=== PATIENT | female | born 1930 | race Caucasian/White ===

== ENCOUNTER 2016-09-23 16:01 | Emergency (ER) | payer OTHER ==
[2016-09-23 16:22] VITALS: BP 154/48
--- NOTE | 2016-09-23 16:54 | ED Physician Documentation ---
Upper Extremity Injury - HISTORIAN Historian: patient, spouse - [facility] Stated Complaint: left hand 3rd digit injury Chief Complaint: Hand Injury Additional Information: Fell in her garden yesterday. Thinks she hit sore finger on railroad timber. - ROS CONST: no problems - PAST HX Past History: none, Rt handed Allergies/Adverse Reactions: Allergies Allergy/AdvReac Type Severity Reaction Status Date / Time No Known Allergies Allergy Verified 09/23/16 16:14 Home Medications: Ambulatory Orders Medication Instructions Recorded Atorvastatin Calcium 40 mg PO DAILY 09/23/16 Citalopram Hydrobromide 20 mg PO DAILY 09/23/16 [Citalopram HBr] Glimepiride [Amaryl] 4 mg PO DAILY 09/23/16 Losartan Potassium [Cozaar] 50 mg PO DAILY 09/23/16 - SOCIAL HX Smoking History: non-smoker - FAMILY HX Family History: no significant history - VITAL SIGNS Vital Signs: Vital Signs Temp Pulse Resp BP Pulse Ox 98.8 F 71 18 154/48 96 09/23/16 16:16 09/23/16 16:16 09/23/16 16:16 09/23/16 16:16 09/23/16 16:16 - REVIEWED ASSESSMENTS Nursing Assessment Reviewed: Yes Vitals Reviewed: Yes Progress - Progress Progress: Left 3rd digit Clinical history: Pain Technique AP lateral oblique Findings: There is a avulsion fracture from the base of the middle phalanx of the left 2nd digit. Soft tissue swelling is present over the pip joint. Impression: Avulsion fracture from the palmar base the middle phalanx of the left 3rd digit Electronically signed on Sep 23, 2016 4:47:45 PM CDT by: Babatunde Aguilera ED Results Lab/Radiology - Orders Orders: ED Orders Category Date Time Status Finger Splint 1T Care 09/23/16 16:47 Ordered FINGER 2 VIEWS OR MORE [RAD] Stat Exams 09/23/16 Ordered Upper Extremity Injury Physic - Physical Exam General Appearance: no acute distress, alert Hand: limited ROM (left 3rd finger, swelling at PIP. ) Wrist: normal inspection, no evidence of injury Elbow/Forearm: normal inspection, no evidence of injury Shoulder: normal inspection, no evidence of injury Neuro/Vascular/Tendon: no vascular compromise (L radial pulse 2+. Fingers warm, pink), motor nml, sensation nml Skin: warm,dry Head/ENT: nml inspection Neck/Back: nml inspection Resp/CVS: no resp. distress Discharge Clincal Impression: Fracture of finger of left hand Home Medications: Ambulatory Orders Atorvastatin Calcium 40 mg PO DAILY 09/23/16 Citalopram Hydrobromide [Citalopram HBr] 20 mg PO DAILY 09/23/16 Glimepiride [Amaryl] 4 mg PO DAILY 09/23/16 Losartan Potassium [Cozaar] 50 mg PO DAILY 09/23/16 Condition: Good Disposition: 01 HOME, SELF-CARE Decision to Admit: NO Decision Time: 16:53
--- NOTE | 2016-09-23 16:56 | Diagnostic Imaging Report ---
Name: MARIA ESTHER SHANNON ~~ ~~ : 32 ~~ Acc #: [id number]~~ DOS: Sep 23, 2016 4:31:52 PM CDT ~~ Mod: CR ~~ Desc: UPPER EXTREMITY 1 of 1 CLYDE AMOS~ [address] [address] ~ ~ ~ ~ Report Submission Date: Sep 23, 2016 4:47:45 PM CDT Patient ~ Study Name: MARIA ESTHER SHANNON ~ Date: Sep 23, 2016 4:31:52 PM CDT ~ Modality Type: CR Gender: F ~ Description: UPPER EXTREMITY : 32 ~ Institution: [facility] Physician: CLYDE AMOS ~ ~ ~ ~ Left 3rd digit Clinical history: Pain Technique AP lateral oblique Findings: There is a avulsion fracture from the base of the middle phalanx of the left 2nd digit. Soft tissue swelling is present over the pip joint. Impression: Avulsion fracture from the palmar base the middle phalanx of the left 3rd digit ~ Electronically signed on Sep 23, 2016 4:47:45 PM CDT by: Babatunde CASAREZ
== END 2016-09-23 17:01 | disposition home or self-care (01) ==
LOC: ED 16:01
DX: S62.613A Displaced fracture of proximal phalanx of left middle finger, initial encounter for closed fracture (principal); X58.XXXA Exposure to other specified factors, initial encounter; Y93.9 Activity, unspecified; Y99.9 Unspecified external cause status
CPT/HCPCS: 73140; 99283

== ENCOUNTER 2018-02-25 16:38 | Emergency (ER) | payer OTHER ==
[2018-02-25 16:55] VITALS: BP 172/54
[2018-02-25] MEDS ORDERED: DIPH,PERTUSS(ACELL),TET VAC/PF 0.5 ML DISP.SYRIN IM ONE (17:03)
[2018-02-25] MEDS ORDERED: Lidocaine 1% 5ml(IM or SUTURE)(PAIN CLINIC) IJ ONE (17:03)
--- NOTE | 2018-02-25 17:18 | ED Physician Documentation ---
Fall - HISTORIAN Historian: patient - HPI Stated Complaint: FALL Chief Complaint: Multiple Trauma Onset: just prior to arrival Where: home Context: tripped r: moderate Associated Symptoms:: no loss of consciousness Location of Pain/Injury: head Injury to Right Extremity: hand, knee Injury to Left Extremity: hand, knee (abrasion) - ROS CONST: no problems NEURO: denies: dizziness MS/SKIN/LYMPH: denies: neck pain EYES/ENT: none CVS/RESP: none GI/: denies: problems urinating - PAST HX Past History: diabetes Type 2 Immunizations: denies: tetanus Allergies/Adverse Reactions: Allergies Allergy/AdvReac Type Severity Reaction Status Date / Time No Known Allergies Allergy Verified 09/23/16 16:14 Home Medications: Ambulatory Orders Medication Instructions Recorded Atorvastatin Calcium 40 mg PO DAILY 09/23/16 Glimepiride [Amaryl] 4 mg PO DAILY 09/23/16 Aspirin [Children's Aspirin] 81 mg D 02/25/18 - SOCIAL HX Smoking History: non-smoker Alcohol Use: none Drug Use: none - FAMILY HX Family History: no significant history - VITAL SIGNS Vital Signs: Vital Signs Temp Pulse Resp BP Pulse Ox 97.3 F L 69 20 172/54 96 02/25/18 16:50 02/25/18 16:50 02/25/18 16:50 02/25/18 16:50 02/25/18 16:50 - REVIEWED ASSESSMENTS Nursing Assessment Reviewed: Yes Vitals Reviewed: Yes Procedures Wound Location: head Wound's Depth, Shape: superficial Wound Explored: clean Irrigated w/ Saline (ccs): 50 Betadine Prep?: Yes Anesthesia: 1% Lidocaine Wound Debrided: moderate Wound Repaired With: sutures Suture Size/Type: 4:0 Number of Sutures: 8 Sterile Dressing Applied?: Yes Splint Applied?: No Sling Applied?: No ED Results Lab/Radiology - Radiology Radiology Impressions: CT BRAIN WITHOUT CONTRAST HISTORY: Injury after fall. Hit head on concrete steps TECHNIQUE: Axial images were obtained from the skullbase to the vertex without IV contrast. FINDINGS: The ventricular system, basilar cisterns and cortical sulci are prominent compatible with age-related cortical volume loss. Patchy areas of periventricular to subcortical white matter lucency are present consistent with mild small vessel ischemic disease. 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 There is no positive mass effect or intra/extra-axial hemorrhage. Visualized paranasal sinuses demonstrate prior functional endoscopic sinonasal surgery. There is mucosal thickening of the bilateral maxillary sinuses, right more than left. The calvarium is intact. There is a soft tissue laceration of the left frontal scalp. IMPRESSION: Age-related cortical volume loss with mild small vessel ischemic disease. 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 Small, focal laceration of the left frontal scalp without skull fracture. Status post functional endoscopic sinonasal surgery with mucosal thickening of bilateral maxillary sinuses, right more than left. No acute intracranial abnormality. - Orders Orders: ED Orders Category Date Time Status CT BRAIN W/O CONTRAST Stat Exams 02/25/18 Ordered Diph,Pertuss(Acell),Tet Vac/Pf [Adacel] Med 02/25/18 17:03 Once 0.5 ml IM .ONCE ONE Lidocaine 1% 5ml(IM or SUTURE) [Xylocaine] Med 02/25/18 17:03 Once 50 mg IJ NOW ONE Fall Physical Exam - Physical Exam General Appearance: no acute distress Head: trauma (vertical 4 cm laceration left forehead) Neck: non-tender Eye: JOSE ANTONIO ENT: nml external inspection Resp/CVS: chest non-tender, heart sounds nml Abdomen: soft, no distension Neuro: oriented x3, facial asymmetry Skin: color nml Extremities: other (abrasions to both knees at tibial plateau and bilateral hands at thenar ) - Yohana Coma Score Eyes Open: Spontaneous Speech: Oriented Motor: Obeys Commands Discharge Clincal Impression: Laceration Referrals: Kaiden Petersen MD [Primary Care Provider] - 2 Days Additional Instructions: Keep wound clean and dry Wash twice daily with soap, pat to dry Apply triple antibiotic ointment twice daily Condition: Good Disposition: 01 HOME, SELF-CARE Decision to Admit: NO Date of Decison to Admit: 02/25/18 Decision Time: 18:26
--- NOTE | 2018-02-25 19:05 | Diagnostic Imaging Report ---
CHRIS ANAYA [facility] [address] [facility] [address] [place] [address]. [id number] Report Submission Date: Feb 25, 2018 5:40:59 PM CDT Patient Study Name: MARIA ESTHER SHANNON Date: Feb 25, 2018 5:17:04 PM CDT Modality Type: CT\SR Gender: F Description: CT BRAIN W/O CONTRAST : 32 Institution: [facility] Physician: CHRIS ANAYA CT BRAIN WITHOUT CONTRAST HISTORY: Injury after fall. Hit head on concrete steps TECHNIQUE: Axial images were obtained from the skullbase to the vertex without IV contrast. FINDINGS: The ventricular system, basilar cisterns and cortical sulci are prominent compatible with age-related cortical volume loss. Patchy areas of periventricular to subcortical white matter lucency are present consistent with mild small vessel ischemic disease. 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 There is no positive mass effect or intra/extra-axial hemorrhage. Visualized paranasal sinuses demonstrate prior functional endoscopic sinonasal surgery. There is mucosal thickening of the bilateral maxillary sinuses, right more than left. The calvarium is intact. There is a soft tissue laceration of the left frontal scalp. IMPRESSION: Age-related cortical volume loss with mild small vessel ischemic disease. 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 Small, focal laceration of the left frontal scalp without skull fracture. Status post functional endoscopic sinonasal surgery with mucosal thickening of bilateral maxillary sinuses, right more than left. No acute intracranial abnormality. Electronically signed on Feb 25, 2018 5:40:59 PM CDT by: Charlene CASAREZ
== END 2018-02-25 18:26 | disposition home or self-care (01) ==
LOC: ED 16:38
DX: S09.90XA Unspecified injury of head, initial encounter (principal); S01.81XA Laceration without foreign body of other part of head, initial encounter; S80.211A Abrasion, right knee, initial encounter; S80.212A Abrasion, left knee, initial encounter; S60.512A Abrasion of left hand, initial encounter; S60.511A Abrasion of right hand, initial encounter; W19.XXXA Unspecified fall, initial encounter; Y92.018 Other place in single-family (private) house as the place of occurrence of the external cause; Y93.9 Activity, unspecified; Y99.9 Unspecified external cause status
CPT/HCPCS: 12013; 70450; 90471; 90715; 96372

== ENCOUNTER 2019-04-23 21:20 | Emergency (ER) | payer MEDICARE, OTHER ==
--- NOTE | 2019-04-23 22:13 | ED Physician Documentation ---
Fall - HISTORIAN Historian: patient, child (Daughter) - HPI Stated Complaint: Fall and struck side of doorframe Chief Complaint: Fall Additional Information: 89 year old female presents to ER via [facility] s/p fall from standing position; spouse and daughter at the bedside; patient states that she tripped on her carpet and hit her head on the door frame. She has a small hematoma to the left hip. She states that her hip is fine; she states that it will just be bruised; ambulated after fall without difficulty; she also has a small 1 cm lac to the left temporal region of scalp; she denies any LOC. She states that she is on Xarelto; no memory loss; daughter states that patient is at baseline and neurologically intact; discussed head CT but they will monitor patient at home and we discussed symptoms to monitor in case of "slow bleed". Onset: just prior to arrival Where: home Context: tripped r: mild Associated Symptoms:: no loss of consciousness Location of Pain/Injury: head, hip Injury to Right Extremity: none Injury to Left Extremity: hip (small hematoma; denies bone pain) - ROS CONST: no problems NEURO: denies: dizziness MS/SKIN/LYMPH: denies: weakness, back pain EYES/ENT: none CVS/RESP: none GI/: denies: nausea, vomiting - PAST HX Past History: A-Fib Immunizations: tetanus (2018), UTD Allergies/Adverse Reactions: Allergies Allergy/AdvReac Type Severity Reaction Status Date / Time Penicillins Allergy Verified 04/23/19 21:47 prednisone Allergy Verified 04/23/19 21:47 Sulfa (Sulfonamide Allergy Verified 04/23/19 21:47 Antibiotics) Home Medications: Ambulatory Orders Medication Instructions Recorded Atorvastatin Calcium 20 mg PO HS 10/03/18 Citalopram Hydrobromide 20 mg PO DAILY 10/03/18 [Citalopram HBr] Glimepiride [Amaryl] 2 mg PO DAILY 10/03/18 Losartan Potassium [Cozaar] 50 mg PO DAILY 10/03/18 Apixaban [Eliquis] 2.5 mg PO DAILY 04/23/19 Aspirin [Aspir-Low] 81 mg PO DAILY 04/23/19 Glimepiride 1 mg PO DAILY 04/23/19 Metoprolol Tartrate [Lopressor] 20 mg PO DAILY 04/23/19 Omeprazole 20 mg PO DAILY 04/23/19 Trazodone HCl 50 mg PO DAILY 04/23/19 - SOCIAL HX Smoking History: non-smoker Alcohol Use: none Drug Use: none - FAMILY HX Family History: none - VITAL SIGNS Vital Signs: Vital Signs Temp Pulse Resp BP Pulse Ox 98.2 F 67 16 251/74 96 04/23/19 21:20 04/23/19 21:20 04/23/19 21:20 04/23/19 21:20 04/23/19 21:20 - REVIEWED ASSESSMENTS Nursing Assessment Reviewed: Yes Vitals Reviewed: Yes Procedures Wound Location: head Wound Length: 1 cm Wound's Depth, Shape: linear Wound Explored: no foreign body removed Irrigated w/ Saline (ccs): 100 Betadine Prep?: No Wound Repaired With: clemente Number of Sutures: 3 (3 clemente) Progress: Patient tolerated well Fall Physical Exam - Physical Exam General Appearance: alert, mild distress Head: trauma (1 cm lac to the left temporal region) Neck: non-tender, painless ROM Eye: JOSE ANTONIO, EOMI, lids & conjunct. nml ENT: nml external inspection, no dental injury, no oral injury, airway nml Resp/CVS: chest non-tender, no ecchymosis, breath sounds nml, heart sounds nml Abdomen: soft, normal bowel sounds Neuro: oriented x3, CN's nml as tested, sensation nml, motor nml, mood/affect nml, psych coordinator nml, psych coordinator symmetrical Skin: color nml, warm, nml palp., other (1 cm lac to the left temporal) Back: normal inspection Extremities: pelvis stable, hips non-tender, nml ROM, nml color/temp, other (small hematoma to the left hip; no bone pain; steady gait (ambulated in [place] with nurse)) Joint: joints nml, nml ROM, Nml gait/weight bearing (ambulated in gustafson with nursing) - Yohana Coma Score Eyes Open: Spontaneous Speech: Oriented Motor: Obeys Commands Discharge Clincal Impression: Fall from standing, Laceration of head, Contusion of left hip Referrals: Kaiden Petersen MD [Primary Care Provider] - 2 Days Additional Instructions: Monitor for signs of slow head bleeds: Increase in head pain, headache not relieved with Tylenol, dizziness, slurred speech, difficulty walking, visual disturbances * May wash your hair * Follow up with PCP in 2 days for re-evaluation of head injury * Have clemente removed in 7-10 days Condition: Good Disposition: 01 HOME, SELF-CARE Decision to Admit: NO Decision Time: 22:20
[2019-04-23 22:37] VITALS: BP 228/73
== END 2019-04-23 22:32 | disposition home or self-care (01) ==
LOC: ED 21:20
DX: S01.91XA Laceration without foreign body of unspecified part of head, initial encounter (principal); S70.02XA Contusion of left hip, initial encounter; W01.198A Fall on same level from slipping, tripping and stumbling with subsequent striking against other object, initial encounter; Y92.009 Unspecified place in unspecified non-institutional (private) residence as the place of occurrence of the external cause
CPT/HCPCS: 12011; 99281; 99282